=== PATIENT | male | born 1955 | race Caucasian/White ===

== ENCOUNTER 2021-10-01 10:45 | Inpatient (IN) ==
[2021-10-01] MEDS ORDERED: Naloxone 0.4 MG/ML INJ IVP PRN (13:41)
[2021-10-01] MEDS ORDERED: Ipratropium/Albuterol Neb 3 ML IH PRN (13:45)
[2021-10-01] MEDS ORDERED: *HR* LORazepam 2 MG/ML VIAL IVP PRN ×3 (13:46)
[2021-10-01] MEDS ORDERED: Ondansetron 4 MG/2 ML VIAL IVP PRN (13:47)
[2021-10-01] MEDS ORDERED: 0.9 % Sodium Chloride 1,000 ML IVC SCH (14:00)
[2021-10-01 14:33] LABS: BUN/Creatinine Ratio 11 (6-26); Blood Urea Nitrogen 8 mg/dL (8-23); Calcium 9.3 mg/dL (8.6-10.3); Carbon Dioxide 28 mEq/L (23-29); Chloride 87 mEq/L (98-107); Glucose 106 mg/dL (70-105); Osmolality,Calculated 251 (280-300); Potassium 3.8 mEq/L (3.5-5.1); Sodium 121 mEq/L (136-145); eGFR For African Americans > 60 (> 60); eGFR For Non-African Americans > 60 (> 60)
[2021-10-01] MEDS ORDERED: Acetaminophen 325 MG TABLET PO ONE (20:19)
[2021-10-01] MEDS ORDERED: Melatonin 3 MG TABLET PO SCH (21:00)
[2021-10-01 23:26] LABS: BUN/Creatinine Ratio 13 (6-26); Blood Urea Nitrogen 9 mg/dL (8-23); Calcium 8.8 mg/dL (8.6-10.3); Carbon Dioxide 26 mEq/L (23-29); Chloride 90 mEq/L (98-107); Glucose 158 mg/dL (70-105); Osmolality,Calculated 258 (280-300); Potassium 3.6 mEq/L (3.5-5.1); Sodium 123 mEq/L (136-145); eGFR For African Americans > 60 (> 60); eGFR For Non-African Americans > 60 (> 60)
[2021-10-02 02:29] LABS: Basophils # 0.1 K/mcL (0.0-0.2); Basophils % 0.9 %; Eosinophils # 0.1 K/mcL (0.0-0.6); Eosinophils % 1.3 %; Hematocrit 38.8 % (37.5-50.1); Hemoglobin 14.3 g/dL (12.9-16.9); Immature Granulocytes % 2.4 % (0-4); Lymphocytes # 2.3 K/mcL (0.6-4.6); Lymphocytes % 41.4 %; Mean Corpuscular HGB Conc 36.9 g/dL (31.6-35.5); Mean Corpuscular Hemoglobin 34.3 pg (28.0-33.3); Mean Platelet Volume 8.7 fL (9.4-12.4); Monocytes # 0.7 K/mcL (0.0-1.3); Monocytes % 11.9 %; Neutrophils # 2.3 K/mcL (1.6-8.9); Platelet Count 227 K/mcL (140-400); Red Blood Count 4.17 M/mcL (4.19-5.50); Red Cell Distribution Width 11.5 % (11.5-14.5); Segmented Neutrophils % 42.1 %; White Blood Count 5.5 K/mcL (4.3-11.1)
[2021-10-02 03:44] VITALS: TEMP 97.7
[2021-10-02] MEDS ORDERED: Nicotine 2 MG GUM BC PRN (05:27)
[2021-10-02] MEDS ORDERED: *HR* Enoxaparin 40 MG/0.4 ML SYRINGE SQ SCH (06:00)
[2021-10-02] MEDS ORDERED: Aspirin Enteric Coated 81 MG Tablet PO SCH (09:00)
[2021-10-02] MEDS ORDERED: Nicotine 21 MG PATCH.TD24 TD SCH (09:00)
[2021-10-02] MEDS ORDERED: Vitamin B Complex/Vit C/Vit E 1 EACH TABLET PO SCH (09:00)
[2021-10-02] MEDS ORDERED: Thiamine (B-1) 100 MG TABLET PO SCH (09:00)
[2021-10-02] MEDS ORDERED: Folic Acid 1 MG TABLET PO SCH (09:00)
[2021-10-02 09:27] LABS: BUN/Creatinine Ratio 11 (6-26); Blood Urea Nitrogen 7 mg/dL (8-23); Carbon Dioxide 17 mEq/L (23-29); Chloride 93 mEq/L (98-107); Glucose 99 mg/dL (70-105); Osmolality,Calculated 250 (280-300); Potassium 4.4 mEq/L (3.5-5.1); Sodium 121 mEq/L (136-145); eGFR For African Americans > 60 (> 60); eGFR For Non-African Americans > 60 (> 60)
[2021-10-02 11:54] VITALS: BP 164/89; PULSE 88; O2SAT 97
== END 2021-10-02 12:28 | disposition home or self-care (01) | DRG 641 ==
LOC: 2NENU
PROVIDERS: ADMIT Internal Medicine; ATTEND Internal Medicine